=== PATIENT | male | born 1995 | race African-American/Black ===

== ENCOUNTER 2016-10-05 20:02 | Emergency (ER) | payer OTHER ==
[~2016-10-05] VITALS: Ht 188 cm; Wt 88.9 kg
[~2016-10-05 20:02] MED LIST: HYDROCODON-ACE1 EA15 ORAL; MOTRIN400 MG PO; VICODIN 5-5001 EACH PO
[2016-10-05 20:53] VITALS: BP 133/78
--- NOTE | 2016-10-05 20:59 | Emergency Room Report ---
History of Present Illness General Chief Complaint: Edema Source: Patient Present Illness HPI The patient presents with swelling of his right dorsal wrist after receiving a bug bite yesterday. It's also red and now more swollen. He denies any pain there. He denies any fevers or chills. His tetanus was within the last 10 years. He's not taken any medication for it. He states the pain is 2/10 and declined taking any pain medication at this time. He is not diabetic and denies any medical problems. Pain not radiate, worse when dependent. No numbness. R handed Allergies: Coded Allergies: VANCOMYCIN (Verified Adverse Reaction, Mild, hives, itching, 10/05/16) Uncoded Allergies: Eggs (Allergy, Unknown, 10/05/16) Patient History Past Medical History: see triage record Social History: Denies: smoking Social History Narrative [place] Immunizations: UTD Reviewed Nursing Documentation: PMH: Agreed, PSxH: Agreed Nursing Documentation-PMH Hx Asthma: Yes Review of Systems Constitutional: Denies: fever Musculoskeletal: Reports: see HPI Skin: Reports: see HPI Neurological: Reports: see HPI Physical Exam Vital Signs Date Time Temp Pulse Resp B/P Pulse Ox O2 Delivery O2 Flow Rate FiO2 10/05/16 20:35 97.9 62 16 133/78 98 Room Air Sp02 EP Interpretation: reviewed, normal General Appearance: well appearing, no apparent distress Head: normocephalic, atraumatic Eyes: bilateral eye normal inspection ENT: hearing grossly normal, normal voice, moist mucus membranes Neck: full range of motion, supple Respiratory: no respiratory distress, speaking full sentences Musculoskeletal: digits/nails normal, normal range of motion - no tendon tenderness hand, inflammation, swelling - dorsum of R hand Neurologic: alert, normal gait, grossly normal Psychiatric: mood/affect normal Skin: other - erythema dorsum R hand - no fluctuance Medical Decision Making Diagnostic Impression: Primary Impression: Cellulitis Qualified Codes: L03.114 - Cellulitis of left upper limb Additional Impression: Urticarial reaction to vancomycin ER Course Patient presents with swelling in his right wrist after a bug bite. Differential includes cellulitis, abscess, allergic reaction, venom reaction. As there is little pain and significant erythema without any fluctuance suggestive this is a cellulitis. As this involves a significant portion of his hand we're going to be giving a dose of IV antibiotics and then placement on oral antibiotics. His tetanus is up-to-date. Also be giving him a sling and bacitracin. Reacted to vanco with some urticaria. Benadryl given. Sling placement good with normal neurovasc examined by me. Patient stable for outpatient observation and treatment. Last Vital Signs Date Time Temp Pulse Resp B/P Pulse Ox O2 Delivery O2 Flow Rate FiO2 10/05/16 23:13 97.9 80 16 126/80 98 Room Air Status: improved Disposition: HOME, SELF-CARE Condition: Improved Scripts Bacitracin (Bacitracin) 28.4 Gm Oint...g. 1 APPLIC TOPIC BID, #10 GM Prov: Nithni Toro M.D. 10/05/16 Cephalexin* (KEFLEX*) 500 Mg Capsule 500 MG ORAL Q6H, #28 CAP 0 Refills Prov: Nithin Toro M.D. 10/05/16 Trimethoprim/Sulfamethoxazole 160/800* (BACTRIM DS TABLET*) 1 Each Tablet 1 TAB ORAL Q12H, #14 TAB 0 Refills Prov: Nithin Toro M.D. 10/05/16 Nithin Toro M.D. Oct 05, 2016 20:59
[2016-10-05] MEDS ORDERED: Vancomycin 1 GM in D5W 275 ML IVPB ONE (21:00)
[2016-10-05] MEDS ORDERED: Bacitracin Oint UD TOPIC ONE (21:00)
[2016-10-05] MEDS ORDERED: Vancomycin 1gm inj IVPB ONE (21:01)
[2016-10-05] MEDS ORDERED: D5W 275 ML ONE (21:02)
[2016-10-05] MEDS ORDERED: BACTRIM DS TAB1 EAC1 ORAL (21:53)
[2016-10-05] MEDS ORDERED: KEFLEX500 MG ORAL (21:53)
[2016-10-05] MEDS ORDERED: BACITRACIN15 GM TOPIC (21:53)
[2016-10-05 23:13] VITALS: BP 126/80
== END 2016-10-05 23:17 | disposition home or self-care (01) ==
LOC: EMR 21:10
DX: L03.113 Cellulitis of right upper limb (principal); L50.9 Urticaria, unspecified; T36.8X5A Adverse effect of other systemic antibiotics, initial encounter; Y92.9 Unspecified place or not applicable; J45.909 Unspecified asthma, uncomplicated
CPT/HCPCS: 29240; 96360; 99284; J3370

== ENCOUNTER 2016-12-22 18:47 | Emergency (ER) | payer OTHER ==
[~2016-12-22] VITALS: Ht 190.5 cm; Wt 92.1 kg
[~2016-12-22 18:47] MED LIST changes: +BACITRACIN15 GM TOPIC; +BACTRIM DS TAB1 EAC1 ORAL; +KEFLEX500 MG ORAL
--- NOTE | 2016-12-22 19:39 | Emergency Room Report ---
History of Present Illness General Chief Complaint: Lower Extremity Injury Source: Patient Present Illness HPI 21 YO Male presents to the ED c/o Left knee pain localized and rated to be 7/ 10 in severity dull ache to the anterior knee x 1 day. pt. reports previous hx of partial meniscal injury to the affected extremity. Patient denies abrasions, open wounds, erythema, increased temperature palpation, swelling, or history of gout. Pt reports he is able to bear weight and took IBU at noon today and has had ralph wrap applied since injury. Denies numbness tingling or loss of sensation or gross motor movements of the extremities, incontinence of bowel or bladder. Denies Fevers, chills, CP, Palpitations, LOC, AMS, dizziness, Changes in Vision, Sensation, paresthesias, or a sudden severe headache. Allergies: Coded Allergies: VANCOMYCIN (Verified Adverse Reaction, Mild, hives, itching, 10/05/16) Uncoded Allergies: Eggs (Allergy, Unknown, 10/05/16) Patient History Past Medical History: see triage record Past Surgical History: none Pertinent Family History: none Immunizations: UTD Reviewed Nursing Documentation: PMH: Agreed, PSxH: Agreed Nursing Documentation-PMH Past Medical History: No History, Except For Hx Asthma: Yes Review of Systems All Other Systems: negative except mentioned in HPI Physical Exam Vital Signs Date Time Temp Pulse Resp B/P (MAP) Pulse Ox O2 Delivery O2 Flow Rate FiO2 12/22/16 18:55 97.9 64 20 131/73 99 Room Air Sp02 EP Interpretation: reviewed, normal General Appearance: no apparent distress, alert, GCS 15, non-toxic Head: normocephalic, atraumatic Eyes: bilateral eye normal inspection, bilateral eye PERRL ENT: hearing grossly normal, normal voice Neck: full range of motion Respiratory: lungs clear, normal breath sounds, speaking full sentences Cardiovascular #1: regular rate, rhythm Musculoskeletal: back normal, gait/station normal, normal range of motion, no calf tenderness, tender - Anterior knee TTP, and pain with full extension, pt. able to extend leg against resistance, distal pulses intact, no increased laxity to valgus or varus stress, negative anterior drawer sign, negative Gabrielle exam. Neurologic: alert, oriented x3, responsive, motor strength/tone normal, sensory intact, speech normal Psychiatric: judgement/insight normal, memory normal, mood/affect normal, no suicidal/homicidal ideation Reflexes: 4+ bicep (R), 4+ bicep (L), 4+ tricep (R), 4+ tricep (L), 4+ knee (R) , 4+ knee (L) Skin: normal color, no rash, warm/dry, well hydrated Lymphatic: no adenopathy Medical Decision Making PA Attestation Dr. Haimlton is my supervising Physician whom patient management has been discussed with. Diagnostic Impression: Primary Impression: Left knee sprain Qualified Codes: S83.92XA - Sprain of unspecified site of left knee, initial encounter ER Course 21 YO Male presents to the ED c/o Left knee pain localized and rated to be 7/ 10 in severity dull ache to the anterior knee x 1 day. pt. reports previous hx of partial meniscal injury to the affected extremity. Patient denies abrasions, open wounds, erythema, increased temperature palpation, swelling, or history of gout. Pt reports he is able to bear weight and took IBU at noon today and has had ralph wrap applied since injury. Denies numbness tingling or loss of sensation or gross motor movements of the extremities, incontinence of bowel or bladder. Denies Fevers, chills, CP, Palpitations, LOC, AMS, dizziness, Changes in Vision, Sensation, paresthesias, or a sudden severe headache. Ddx considered but are not limited to Fracture, dislocation, contusion, Sprain/ Strain/Spasm just to name a few. Vital signs: are WNL, pt. is afebrile H&PE are most consistent with musculoskeletal injury will perform imaging to r/ o fractures/dislocations. ORDERS: - X-ray Left Knee 3 views - negative for fx, Dislocation, or significant soft tissue injury, per preliminary read in ED by Dr. Hamilton - interpretation is scribed by PA. ED INTERVENTIONS: - IBU PO 600mg DISCHARGE: At this time pt. is stable for d/c to home. Will provide printed patient care instructions, and any necessary prescriptions. Care plan and follow up instructions have been discussed with the patient prior to discharge. Last Vital Signs Date Time Temp Pulse Resp B/P (MAP) Pulse Ox O2 Delivery O2 Flow Rate FiO2 12/22/16 18:55 97.9 64 20 131/73 99 Room Air Disposition: HOME, SELF-CARE Condition: Stable Scripts Ibuprofen* (MOTRIN*) 600 Mg Tablet 600 MG ORAL THREE TIMES A DAY, #30 TAB 0 Refills Prov: Liz Carey 12/22/16 Referrals: Delfina GUERRA,REFERRING (PCP) Patient Instructions: Knee Sprain Additional Instructions: Take medications as directed. Follow up with a Primary Care Provider in 3-5 days, even if your symptoms have resolved. --Please review list of primary care clinics, if you do not already have a primary care provider Return sooner to ED if new symptoms occur, or current symptoms become worse. - Please note that this Emergency Department Report was dictated using [email or web address] technology software, occasionally this can lead to erroneous entry secondary to interpretation by the dictation equipment. Liz Carey Dec 22, 2016 19:39
[2016-12-22] MEDS ORDERED: IBUPROFEN600 MG ORAL (19:43)
[2016-12-22 19:50] VITALS: BP 131/73
--- NOTE | 2016-12-23 10:41 | Diagnostic Imaging Report ---
Indications: Left knee pain Technique: Three views of the left knee Comparison: None Findings: No acute fractures. No dislocations. Joint spaces are preserved. No radiopaque foreign body. Normal mineralization. Impression: No acute process
== END 2016-12-22 19:50 | disposition home or self-care (01) ==
LOC: EMR 19:05
DX: S83.92XA Sprain of unspecified site of left knee, initial encounter (principal); Y93.B9 Activity, other involving muscle strengthening exercises; Y92.89 Other specified places as the place of occurrence of the external cause; J45.909 Unspecified asthma, uncomplicated; Z91.012 Allergy to eggs
CPT/HCPCS: 99283